=== PATIENT | male | born 1995 | race Two or more races ===

== ENCOUNTER 2017-12-14 01:09 | Emergency (ER) | payer OTHER ==
[~2017-12-14] VITALS: Ht 175.3 cm; Wt 127.3 kg
[2017-12-14] MEDS ORDERED: ACETAMINOPHEN 500 MG TABLET ONE (01:15)
[2017-12-14] MEDS ORDERED: ACETAMINOPHEN 500 MG TABLET PO ONE (01:30)
[2017-12-14 02:46] VITALS: BP 140/84
== END 2017-12-14 03:00 | disposition home or self-care (01) ==
LOC: EMS 01:10
DX: J02.8 Acute pharyngitis due to other specified organisms (principal); B34.8 Other viral infections of unspecified site
CPT/HCPCS: 99282